=== PATIENT | male | born 1975 | race Caucasian/White ===

== ENCOUNTER 2023-08-27 07:00 | Outpatient (CLI) | payer MEDICAID | END 2023-08-27 23:59 | disposition home or self-care (01) | LOC: LAB.S 07:00 | PROVIDERS: ATTEND Emergency Medicine | DX: J02.9 Acute pharyngitis, unspecified (principal) | CPT/HCPCS: 87070 ==

== ENCOUNTER 2024-03-11 08:00 | Outpatient (CLI) | payer MEDICAID ==
--- NOTE | 2024-03-11 12:57 | XRAY Report ---
Hand 3+V LT HISTORY: 48 years of age, OSTEOARTHRITIS OF LEFT THUMB TECHNIQUE: Hand 3+V LT COMPARISON: None. FINDINGS/IMPRESSION: Flexion deformity at the first interphalangeal joint and at the second proximal interphalangeal joint . No acute fracture or dislocation. Joint spaces are well maintained. Reviewed by: Felecia Abarca MD on 03/11/2024 12:56 PM PDT Approved by: Felecia Abarca MD on 03/11/2024 12:56 PM PDT Station ID: [id number]
== END 2024-03-11 23:59 | disposition home or self-care (01) ==
LOC: DI.S 08:00
PROVIDERS: ATTEND Physician Assistant
DX: M18.12 Unilateral primary osteoarthritis of first carpometacarpal joint, left hand (principal); R93.6 Abnormal findings on diagnostic imaging of limbs